=== PATIENT | female | born 1960 | race Caucasian/White ===

== ENCOUNTER 2016-03-02 08:00 | Inpatient (IN) | payer BC ==
--- NOTE | 2016-02-18 14:03 | HP ---
PREOPERATIVE HISTORY AND PHYSICAL: DATE OF PREOPERATIVE HISTORY AND PHYSICAL EXAMINATION: 02/16/16. DATE OF ADMISSION/SURGERY: 03/09/16. This patient is scheduled for AA admission by Dr. Godoy on 03/09/16. ATTENDING SURGEON: Dr. Dhruv Godoy (dictated by Nathan Park NP) CHIEF COMPLAINT: Obesity. HISTORY OF PRESENT ILLNESS: The patient is a 55-year-old female with a body mass index of 37 and comorbidities of obstructive sleep apnea, requiring CPAP and gastroesophageal reflux disease; she has a longstanding history of obesity and is seeking bariatric surgery as a more permanent solution to her obesity and comorbidities. She has tried and failed with sustained weight loss with attempts on conventional diets. She has completed 6 months of medically supervised weight loss and has completed all of the necessary preoperative diagnostic evaluations and testing and has been deemed an appropriate candidate by Dr. Godoy to proceed with laparoscopic sleeve gastrectomy. Dr. Godoy described the nature of the surgical procedure, the expected results of surgery , the relevant risks, benefits, and alternatives, and today I reviewed the typical hospitalization and expected postoperative care and recovery including compliance with the stages of postoperative diet, exercise, vitamin and mineral supplementation, and followup visits at [facility] and [facility]. The patient has had a chance to ask questions and stated that she understands the information and is satisfied with the answers given to her questions. She will sign surgical consent on the day of surgery. PAST MEDICAL HISTORY: Significant for: 1. Obstructive sleep apnea, requiring the use of CPAP. 2. Gastroesophageal reflux disease. 3. Small hiatal hernia as demonstrated on preoperative upper endoscopy. 3. Mildly elevated cholesterol. PAST SURGICAL HISTORY: 1. Appendectomy in 1980. 2. section in 1989. MEDICATIONS: 1. Citalopram 40 mg p.o. daily in the morning. 2. Lansoprazole 30 mg p.o. b.i.d. 3. Zolpidem 10 mg at bedtime. ALLERGIES: No known drug allergies. FAMILY HISTORY: Mother at age 83 with complications of sepsis and had valvular heart disease and COPD. Father at age 79, he was in a motor vehicle accident while visiting his in the hospital and 10 days before his with complications of multiple fractures and respiratory failure. He had a history of heart disease and pacemaker. The patient has one sister, alive at age 50, described as overweight. She has 2 half-brothers, one of the brothers from rectal cancer and the other brother with heart disease. No known anesthesia complications or bleeding tendencies or clotting disorders in the family. 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 She drinks alcohol socially and denies the use of other substances. She exercises by going horseback riding and she also has access to gyms on the [facility]. REVIEW OF SYSTEMS: She reports migraine headaches; she denies any cardiac conditions or complaints; she was diagnosed with obstructive sleep apnea and has been using CPAP; she underwent upper endoscopy by Dr. Lynch at [place] on 03/15 and was diagnosed with GERD and a small hiatal hernia, and increased lansoprazole from daily to b.i.d. to control her GERD symptoms. She denies any history of deep venous thrombosis or pulmonary embolism. She denies any previous anesthesia complications or bleeding tendencies and has never received a blood transfusion. She denies any bladder or kidney complaints. She has gone through phases of irritable bowel, but currently her bowel movements are formed and regular. She had a colonoscopy on 04/29/15, reportedly within normal limits. She has a history of plantar fasciitis of the right foot and bone spur of the left foot. She has never been diagnosed with diabetes and has not had abnormal thyroid testing. She has never had a gallbladder attack. She denies any circulatory problems or painful varicose veins. PHYSICAL EXAMINATION GENERAL SURVEY: The patient is a 55-year-old obese female, well-developed, in no acute distress. VITAL SIGNS: Height 64 inches, weight today 217 pounds, body mass index 37.2, blood pressure 144/90, pulse 62 and regular, respiratory rate 16, temperature 98.2 tympanic. SKIN: Warm, dry, and intact. HEENT: Benign. NECK: Supple. No cervical lymphadenopathy. No thyromegaly. No carotid bruits. BACK: No CVA tenderness. LUNGS: Breath sounds bilaterally clear and equal. HEART: Regular rate and rhythm. No murmurs or rubs appreciated. ABDOMEN: Active bowel sounds. Well-healed surgical scars. Soft and nondistended and nontender throughout. No obvious masses, organomegaly, or incisional or ventral hernias. No skin fold rashes. EXTREMITIES: Warm without edema or skin ulcerations. PELVIC: Deferred. RECTAL: Deferred. NEUROLOGIC: Alert and oriented x3, steady gait. IMPRESSION: 1. Morbid obesity. 2. Obstructive sleep apnea requiring CPAP. 3. GERD with small hiatal hernia. PLAN/RECOMMENDATIONS: AA admission to Dr. Godoy' service on 03/09/16 , for a laparoscopic sleeve gastrectomy. NATHAN PARK NP CC: [facility]; Tammy Hernandez NP * [id number]/CPS #: [id number] [facility]
[2016-03-09] MEDS ORDERED: Dexamethasone IV* 4 MG/ML 1 ML (4 MG) IV SLOW PU ONE (06:00)
[2016-03-09] MEDS ORDERED: Famotidine IV* 10 MG/ML 2 ML (20 mg) IV ONE (06:00)
[2016-03-09] MEDS ORDERED: Buffered Lidocaine 1% SYR 3ML* 3 ML/SYR SYRINGE INTRADERM ONE (06:00)
[2016-03-09] MEDS ORDERED: Scopolamine 1.5 mg* PATCH TRANSDERM ONE (06:00)
[2016-03-09] MEDS ORDERED: Bupivacaine 0.5% W/EPI SDV* 30 ML VIAL ONE (06:57)
[2016-03-09] MEDS ORDERED: Famotidine IV* 10 MG/ML 2 ML (20 mg) ONE (09:24)
[2016-03-09] MEDS ORDERED: Dexamethasone IV* 4 MG/ML 1 ML (4 MG) ONE (09:24)
[2016-03-09] MEDS ORDERED: Heparin VIAL(*) 5000 UNITS/ML VIAL (FIVE THOUSAND) ONE (09:24)
[2016-03-09] MEDS ORDERED: Scopolamine 1.5 mg* PATCH ONE (09:24)
[2016-03-09] MEDS ORDERED: ceFAZolin 2 GM PREMIX (*) 2 GM/50 ML BAG IVPB ONE (09:25)
[2016-03-09] MEDS ORDERED: Buffered Lidocaine 1% SYR 3ML* 3 ML/SYR SYRINGE ONE (09:25)
[2016-03-09] MEDS ORDERED: ceFAZolin 1 GM in Dextrose (*) 1 GM/50 ML BAG IVPB ONE (09:25)
[2016-03-09] MEDS ORDERED: Propofol* 10 MG/ML 20 ML BTL IV PUSH ONE (09:59)
[2016-03-09] MEDS ORDERED: Lidocaine 2% MPF* 2 ML VIAL ONE (09:59)
[2016-03-09] MEDS ORDERED: Rocuronium* 10 MG/ML VIAL ONE (09:59)
[2016-03-09] MEDS ORDERED: Midazolam* 1 MG/ML 5 ML VIAL (5 MG) ONE (09:59)
[2016-03-09] MEDS ORDERED: fentaNYL* 50 MCG/ML 2 ML VIAL (100 MCG VIAL) ONE ×4 (09:59→13:44)
[2016-03-09] MEDS ORDERED: Acetaminophen IV 1GM/100ML * 100 ML IVPB ONE (10:10)
[2016-03-09] MEDS ORDERED: PROCHLORPERAZINE INJ 5 MG/ML 2 ML VIAL IV PRN (10:10)
[2016-03-09] MEDS ORDERED: Morphine INJ* 2 MG/ML 1 ML CARPUJECT IV PRN (10:10)
[2016-03-09] MEDS ORDERED: Clindamycin 900 MG IVPREMIX(* 900 MG/50 ML SDV IV ONE (10:31)
[2016-03-09] MEDS ORDERED: Ketorolac INJ* 30 MG/ML 1 ML VIAL ONE (10:40)
[2016-03-09] MEDS ORDERED: Glycopyrrolate IV* 0.2 MG/ML 1 ML VIAL ONE (10:49)
[2016-03-09] MEDS ORDERED: Ondansetron INJ* 2 MG/ML VIAL ONE (11:26)
[2016-03-09] MEDS ORDERED: Acetaminophen IV 1GM/100ML * 100 ML ONE (11:58)
[2016-03-09] MEDS ORDERED: diPHENhydraMINE IV* 50 MG/ML 1 ml VIAL (BENADRYL) SLOW PUSH PRN (11:59)
[2016-03-09] MEDS ORDERED: Ondansetron INJ* 2 MG/ML VIAL IV PRN (11:59)
[2016-03-09] MEDS ORDERED: Acetaminophen ADULT LIQ* 650 MG/20.3 ML UDC PO PRN (11:59)
[2016-03-09] MEDS ORDERED: HYDROcodone/ACET. 7.5/325 LIQ* 15 ML UDC PO PRN (11:59)
--- NOTE | 2016-03-09 12:04 | SURGPN ---
Brief Operative Note - Surgery Procedures: PREOP/POSTOP: MORBID OBESITY/HIATAL HERNIA PROC: LAP SLEEVE GASTRECTOMY; REPAIR OF HIATAL HERNIA SURG: MECENAS ASSIST: DIANE PETERSONS: TWAN/ANTON EBL: MIN IVF: LR SPEC: PORTION OF STOMACH DRAIN: NONE COMPL: NONE COND: STABLE TO RR EXTUBATED.
[2016-03-09] MEDS: fentaNYL* 50 MCG/ML 2 ML VIAL (100 MCG VIAL) IV PRN ×4 (12:50→14:22)
[2016-03-09] MEDS ORDERED: Heparin VIAL(*) 5000 UNITS/ML VIAL (FIVE THOUSAND) SUBCUT SCH (14:00)
[2016-03-09] MEDS ORDERED: HYDROmorphone INJ* 1 MG/ML CARPUJECT SYRINGE ONE (15:14)
[2016-03-09] MEDS: HYDROmorphone INJ* 1 MG/ML CARPUJECT SYRINGE IV PRN ×3 (15:16→21:38)
[2016-03-09] MEDS ORDERED: Pantoprazole IV* 40 MG IV SCH (15:30)
[2016-03-09] MEDS: Heparin VIAL(*) 5000 UNITS/ML VIAL (FIVE THOUSAND) SUBCUT SCH (15:45)
[2016-03-09] MEDS: Ketorolac INJ* 30 MG/ML 1 ML VIAL IV PRN ×2 (15:46→22:10)
[2016-03-10] MEDS: HYDROmorphone INJ* 1 MG/ML CARPUJECT SYRINGE IV PRN ×2 (00:46→04:17)
[2016-03-10] MEDS: Heparin VIAL(*) 5000 UNITS/ML VIAL (FIVE THOUSAND) SUBCUT SCH ×2 (00:47→08:18)
--- NOTE | 2016-03-10 01:55 | OP ---
DATE OF OPERATION: 03/09/16 - ROOM #352 DATE OF : 64 SURGEON: Dhruv Godoy MD POLE SHAVER HELPER: Dr. Hurst. ANESTHESIOLOGIST: Dr. Penaloza. ANESTHESIA: General endotracheal. PRE-OP DIAGNOSES: 1. Morbid obesity. 2. Hiatal hernia. POST-OP DIAGNOSIS: 1. Morbid obesity. 2. Hiatal hernia. OPERATIVE PROCEDURE: Laparoscopic sleeve gastrectomy and laparoscopic hiatal hernia repair. ESTIMATED BLOOD LOSS: Minimal. IV FLUIDS: Crystalloids. SPECIMEN: Portion of stomach. DRAINS: None. COMPLICATIONS: None. COUNTS: The instrument, needles, and sponge counts were correct. DESCRIPTION OF PROCEDURE: The patient was brought to the operating room and placed on the table supine. Sequential compression devices were placed on both lower extremities. General anesthesia was administered. She was positioned and padded appropriately. She received appropriate antibiotics. She was prepped and draped in the usual sterile fashion and time-out was performed. Local anesthetic was infiltrated into the skin and soft tissue prior to making each incision. Entry to the abdomen was through a left upper quadrant incision accommodating a 5-mm optical trocar. After accessing the peritoneal cavity, carbon dioxide was insufflated to a pressure of 15 mmHg. Under direct visualization, a 12- mm bladeless trocar was placed in the supraumbilical midline. A 15-mm bladeless trocar was placed in the right upper quadrant and a 5-mm trocar was placed in the left upper quadrant laterally. The Nida liver retractor was placed percutaneously and the subxiphoid position used to elevate the left lobe of the liver. The patient was noted to have a small sliding type hiatal hernia. The mobilization of the stomach was performed along the greater curvature using the LigaSure device starting 6 cm proximal to the pyloric valve. The greater curvature was entirely skeletonized in this fashion. As the left dyan of the diaphragm was approached , a hiatal hernia sac was reduced and dissected free from the left dyan of the diaphragm. There was a posterior gastric fat pad that was mobilized, but not excised. The esophagogastric ligament was incised across the anterior portion of the stomach as well. The dissection then proceeded on the right side of the stomach entering the pars flaccida bluntly and then dividing the attachments to the right dyan of the diaphragm using a combination of blunt dissection and LigaSure. Subsequently, a sleeve gastrectomy was performed over a 40-Belarusian bougie with a black reinforced cartridge on the antrum and purple reinforced cartridges on the remaining portions of the stomach. The bougie was withdrawn and the retrogastric dissection completed using combination of blunt dissection and LigaSure. There was an adequate 4 cm of esophagus noted to be within the abdominal cavity. The cruroplasty was performed with 0 Ti-Cron suture with a single suture to narrow the defect to a point where it was about 2 cm diameter. The staple lines were then inspected and noted to be intact and hemostatic. The specimen then was retrieved through the right upper quadrant port site and the ports were subsequently removed under direct visualization and carbon dioxide released as well as the liver retractor. The right upper quadrant 15-mm port site was closed with 0 Polysorb in an interrupted fashion. Skin incisions were all closed with gamaliel. The dressings were applied. The patient tolerated the procedure well. She was extubated and transferred to recovery room in a stable condition. CC: Tammy Hernandez NP * [id number]/LORE #: [id number] FRANKI
[2016-03-10] MEDS: Ketorolac INJ* 30 MG/ML 1 ML VIAL IV PRN (05:14)
[2016-03-10] MEDS ORDERED: Citalopram TAB* 40 MG PO SCH (09:00)
--- NOTE | 2016-03-10 09:36 | PN ---
Progress Note - Progress Note SOAP: DISCHARGE NOTE Subjective: Doing well. Tolerating po clears without any N/V/GERD. Pain controllled with oral meds. Objective: Vital Signs Temp 97.8 F 03/10/16 07:51 Pulse 64 03/10/16 07:51 Resp 16 03/10/16 08:13 BP 123/63 03/10/16 07:51 Pulse Ox 93 03/10/16 07:51 Intake & Output 03/09/16 03/10/16 03/10/16 18:59 06:59 18:59 Intake Total 2800 1012 Output Total 1300 Balance 2800 -288 Weight 210 lb 6.4 oz Intake: IV Fluids 2800 982 LR 2500 982 NS 100ML, Cefazolin 1G 100 NS 100ML, Cefazolin 2G 100 NS 100ML, Clindamycin 100 600MG Oral 30 Output: Urine 1300 Other: Estimated Void Medium # Bowel Movements 1 # Voids 3 NAD Abd: ND, soft, dressings intact. Assessment: POD#1 s/p LSG/HH repair. Stable for discharge. Plan: Home today with po meds. RTO for staple removal 7-10 days.
[2016-03-10 11:59] VITALS: BP 111/66
[2016-03-10] MEDS ORDERED: D5W 1/2 NS KCl 20 Meq 1000 ML* 1,000 ML IV SCH (12:00)
[2016-03-12] MEDS ORDERED: Scopolamine PATCH Remove* 1 NOTE MISC PATCH OFF ONE (06:00)
== END 2016-03-10 13:05 | disposition home or self-care (01) | DRG 403 ==
LOC: AA 03-09 08:30 → SSU 03-09 15:03
PROVIDERS: ADMIT Surgery; ATTEND Surgery
PROC: 0BQS4ZZ (ICD-10-PCS; 2016-03-09)
PROC: 0BQR4ZZ (ICD-10-PCS; 2016-03-09)
PROC: 0DB64Z3 Excision of Stomach, Percutaneous Endoscopic Approach, Vertical (ICD-10-PCS; principal; 2016-03-09 09:45)
DX: E66.01 Morbid (severe) obesity due to excess calories (principal); G47.33 Obstructive sleep apnea (adult) (pediatric); K21.9 Gastro-esophageal reflux disease without esophagitis; E78.00 Pure hypercholesterolemia, unspecified; Z82.5 Family history of asthma and other chronic lower respiratory diseases; Z82.49 Family history of ischemic heart disease and other diseases of the circulatory system; Z80.0 Family history of malignant neoplasm of digestive organs; K44.9 Diaphragmatic hernia without obstruction or gangrene; Z68.36 Body mass index [BMI] 36.0-36.9, adult
CPT/HCPCS: 88307; 94760; A9270-GY; C1776; J0690; J1100; J1170; J1644; J1885; J2250; J2405; J2704; J3010

== ENCOUNTER 2017-06-08 12:39 | Day surgery (SDC) | payer BC ==
[~2017-06-08 12:39] MED LIST: Buffered Lidocaine 0.9% SYRIN* 5 ML/SYR SYRINGE INTRADERM ONE
[2017-06-08] MEDS ORDERED: Buffered Lidocaine 0.9% SYRIN* 5 ML/SYR SYRINGE ONE (12:45)
[2017-06-08] MEDS ORDERED: ceFAZolin 2 GM PREMIX (*) 2 GM/50 ML BAG IVPB ONE (12:45)
[2017-06-08] MEDS ORDERED: Midazolam* 1 MG/ML 2 ML VIAL (2 MG) ONE (13:51)
[2017-06-08] MEDS ORDERED: fentaNYL* 50 MCG/ML 2 ML VIAL (100 MCG VIAL) ONE (13:51)
[2017-06-08] MEDS ORDERED: Lidocaine 2% PF * 5 ML VIAL ONE ×2 (13:51→14:07)
[2017-06-08] MEDS ORDERED: Ondansetron INJ* 2 MG/ML VIAL ONE (14:07)
[2017-06-08] MEDS ORDERED: Ketorolac INJ* 30 MG/ML 1 ML VIAL ONE (14:07)
[2017-06-08] MEDS ORDERED: Dexamethasone IV* 4 MG/ML 1 ML (4 MG) ONE (14:07)
[2017-06-08] MEDS ORDERED: Propofol* 10 MG/ML 20 ML BTL IV PUSH ONE (14:07)
[2017-06-08] MEDS ORDERED: Mivacurium Chloride* 20 MG/10 ML VIAL IV ONE (14:07)
[2017-06-08] MEDS ORDERED: Glycopyrrolate IV* 0.2 MG/ML 1 ML VIAL ONE (14:22)
[2017-06-08] MEDS ORDERED: EPHEDrine (Pressors)* 50 MG/ML VIAL ONE (14:23)
[2017-06-08] MEDS ORDERED: Naloxone* 0.4 MG/ML 1 ML VIAL IV PRN (14:31)
[2017-06-08] MEDS ORDERED: fentaNYL* 50 MCG/ML 2 ML VIAL (100 MCG VIAL) IV PRN (14:31)
[2017-06-08] MEDS ORDERED: Acetaminophen TAB* 325 MG PO PRN (14:31)
[2017-06-08] MEDS ORDERED: DiMENhydriNATE IV* 50 MG/ML VIAL IV PUSH PRN (14:31)
[2017-06-08] MEDS ORDERED: HYDROcodone/ACETAMIN 5-325 MG* 1 TAB PO PRN (14:31)
[2017-06-08] MEDS ORDERED: PROCHLORPERAZINE INJ 5 MG/ML 2 ML VIAL IV PRN (14:31)
--- NOTE | 2017-06-08 14:58 | OP ---
Operative Report - Blank - Operative Report Date of Operation: 06/08/17 Note: Pre-op Dx: Symptomatic cholelithiasis Post-op Dx: Symptomatic cholelithiasis Procedure: cholecystectomy Anesthesia: GET Surgeon: Dr. Godoy Assists: KARLIE Kidd; DIANE Gonzalez Fluids: 1500 LR EBL: 25 cc Specimen: gallbladder Drains: none Findings: dictated
[2017-06-08] MEDS ORDERED: HYDROcodone/ACETAMIN 5-325 MG* 1 TAB ONE (15:18)
[2017-06-08 16:11] VITALS: BP 120/74
--- NOTE | 2017-06-09 05:56 | OP ---
CC: Marshall Boles MD, [facility]* DATE OF OPERATION: 06/08/17 - [facility] DATE OF : 64 SURGEON: Dhruv Godoy MD RUBBISH COLLECTION SUPERVISOR: KARLIE Marin ANESTHESIOLOGIST: Jose Mercedes MD ANESTHESIA: General endotracheal. PRE-OP DIAGNOSIS: Symptomatic cholelithiasis. POST-OP DIAGNOSIS: Symptomatic cholelithiasis. OPERATIVE PROCEDURE: Laparoscopic cholecystectomy. ESTIMATED BLOOD LOSS: Minimal. IV FLUIDS: Crystalloid. SPECIMENS: Gallbladder. DRAINS: None. COMPLICATIONS: None. COUNTS: Instrument, needle, and sponge counts were correct. DESCRIPTION OF PROCEDURE: The patient was brought to the operating room and placed on the table supine. Sequential compression devices were placed on both lower extremities. General anesthesia was administered. She was prepped and draped in the usual sterile fashion. She received appropriate intravenous antibiotics. Time- out was performed. Local anesthetic was infiltrated into the skin and soft tissue prior to each incision being made. Entry into the abdomen was through a transumbilical incision using an open technique to accommodate a 12-mm trocar. After I placing the trocar, carbon dioxide was insufflated to pressure of 15 mmHg. Under direct visualization, 5-mm trocars was placed in the subxiphoid position and two in the right upper quadrant. Gallbladder was identified. There were numerous adhesions to the gallbladder of omentum; however, there is no acute inflammation. Adhesions were taken down using a combination of sharp and blunt dissection with cautery. The gallbladder fundus was retracted cephalad and the peritoneum investing the gallbladder near the infundibulum was incised and peeled away to reveal the course of the cystic duct, which was bluntly dissected out. Cystic artery was also identified, bluntly dissected out until critical view was obtained. Then the cystic duct and the cystic artery were reached, doubly clipped and divided. The gallbladder was freed from its attachments to the liver bed using hook cautery to stay in an avascular plane. At one point, the gallbladder was entered and cholecystotomy site was controlled with endoscopic clip placement. The gallbladder was freed from remaining attachments and then retrieved through the umbilical site with the endoscopic retrieval bag. Hemostasis was assured. Clips were noted to be intact and hemostatic. The right upper quadrant was copiously lavaged to retrieve any loose stones and clear any bile. At the conclusion, the ports were removed under direct visualization. Carbon dioxide was released. The umbilical port was closed with 0 Vicryl in [id number] fashion to approximate the fascia. Skin was closed with 4-0 Monocryl in subcuticular fashion. Steri-Strips were applied. The patient tolerated this procedure well, was extubated and transferred to recovery room in stable condition. [id number]/[facility] #: [id number] MTDD
== END 2017-06-08 16:13 | disposition home or self-care (01) ==
LOC: OR 12:39
PROVIDERS: ATTEND Surgery
DX: K80.10 Calculus of gallbladder with chronic cholecystitis without obstruction (principal); Z98.84 Bariatric surgery status; K21.9 Gastro-esophageal reflux disease without esophagitis; K44.9 Diaphragmatic hernia without obstruction or gangrene; E78.00 Pure hypercholesterolemia, unspecified; E66.9 Obesity, unspecified
CPT/HCPCS: 88304; C1776; J0690; J1100; J1885; J2250; J2405; J2704; J3010

== ENCOUNTER 2019-04-25 09:37 | Emergency (ER) | payer BC, OTHER ==
--- NOTE | 2019-04-25 11:43 | UC ---
Throat Pain/Nasal Cali HPI - HPI Summary HPI Summary: 58-year-old female presenting with nasal congestion 4 days. Patient states that "feels like a cold" but her congestion "has not moved." Further states that there is "no drainage and nothing comes out when she blows her nose." Denies cough and sore throat. States "ears feel itchy at time." Denies fever and chills. Notes "sinus headache." States she has been unable to use her CPAP machine at night because she is so congested. States she is taking Sudafed and ibuprofen with minimal relief. - History of Current Complaint Chief Complaint: UCGeneralIllness Stated Complaint: SINUS ISSUES Hx Obtained From: Patient Pain Intensity: 1 Pain Scale Used: 0-10 Numeric - Allergies/Home Medications Allergies/Adverse Reactions: Allergies Allergy/AdvReac Type Severity Reaction Status Date / Time No Known Allergies Allergy Verified 04/25/19 10:32 Home Medications: Home Medications Zolpidem TAB* [Ambien*] 10 mg PO BEDTIME 02/16/16 [History Confirmed 04/25/19] Cholecalciferol TAB* [Vitamin D TAB*] 2,000 units PO QAM 06/07/17 [History Confirmed 04/25/19] Cyanocobalamin TAB* [Vitamin B12 TAB*] 1,000 mcg PO QAM 06/07/17 [History Confirmed 04/25/19] Lansoprazole [Prevacid] 30 mg PO QAM 06/07/17 [History Confirmed 04/25/19] Multivit-Min/Iron Fum/Folic AC [Multi Vitamin and Mineral] 1 tab PO QAM [History Confirmed 04/25/19] Citalopram TAB* [CeleXA TAB*] 40 mg PO DAILY 04/25/19 [History Confirmed ] PMH/Surg Hx/FS Hx/Imm Hx - Surgical History Surgical History: Yes Surgery Procedure, Year, and Place: APPENDECTOMY. . GASTRIC SLEEVE WITH HIATAL HERNIA REPAIR-02/2016. lianne 2017 - Family History Known Family History: Positive: Non-Contributory - Social History Alcohol Use: Occasionally Alcohol Amount: 1 GLASS OF WINE A FEW TIMES A WEEK Substance Use Type: None Smoking Status (MU): Never Smoked Tobacco Amount Used/How Often: RECREATIONAL IN COLLEGE-30+ YEARS AGO - Immunization History Most Recent Influenza Vaccination: 2016 Most Recent Tetanus Shot: 1.5 yrs ago Most Recent Pneumonia Vaccination: HAS NOT HAD Review of Systems All Other Systems Reviewed And Are Negative: Yes Constitutional: Positive: Negative ENT: Positive: Sinus Congestion, Other - "itchy ears". Negative: Sore Throat Respiratory: Positive: Negative Cardiovascular: Positive: Negative Gastrointestinal: Positive: Negative Musculoskeletal: Positive: Negative Neurological/Mental Status: Positive: Negative Physical Exam - Summary Physical Exam Summary: Vital Signs Reviewed: Yes A+Ox3, no distress Eyes: Conjunctiva Clear ENT: Hearing grossly normal, nasal turbinates moist and nonedematous, TM x 2 clear, moist, uvula midline, no exudate, no erythema Neck: Positive: Supple Respiratory: Positive: No respiratory distress, No accessory muscle use + CTA throughout no w/r Cardiovascular: RRR nl s1, s2 no m/r Musculoskeletal Exam: GILBERT x 4 without difficulty Neurological: Positive: Alert Psychological: Positive: age appropriate behavior Skin: Positive: no rash, no ecchymosis Vital Signs: Initial Vital Signs Temp 98.4 F 04/25/19 10:33 Pulse 70 04/25/19 10:33 Resp 16 04/25/19 10:33 BP 118/80 04/25/19 10:33 Pulse Ox 99 04/25/19 10:33 Throat Pain/Nasal Course/Dx - Course Course Of Treatment: Discussed with patient the likely viral etiology of upper respiratory symptoms. Patient instructed to continue to take OTC decongestants for relief of symptoms. May take OTC analgesics as directed for pain relief. Directed follow up with pcp if symptoms worsen or do not resolve within 7 days. Patient voiced understanding and agreed to treatment plan. - Differential Dx/Diagnosis Differential Diagnosis/HQI/PQRI: Sinusitis, URI Provider Diagnosis: URI (upper respiratory infection) Discharge ED - Sign-Out/Discharge Documenting (check all that apply): Patient Departure All imaging exams completed and their final reports reviewed: No Studies - Discharge Plan Condition: Stable Disposition: HOME Patient Education Materials: Upper Respiratory Infection (ED) Referrals: Marshall Boles MD [Primary Care Provider] - If Needed Additional Instructions: Your symptoms are likely caused by a virus and should resolve without treatment. You may continue to take over the counter decongestant and ibuprofen for symptom relief. You may also add Flonase or nasal saline spray. A humidifier at night may also help alleviate symptoms. Get plenty of rest and increase your fluid intake. Follow up with your primary care doctor if your symptoms worsen or do not resolve within 7-10 days. - Billing Disposition and Condition Condition: STABLE Disposition: Home
[2019-04-25 12:15] VITALS: BP 135/78
== END 2019-04-25 12:15 | disposition home or self-care (01) ==
LOC: UCEAST 09:37
DX: J06.9 Acute upper respiratory infection, unspecified (principal)
CPT/HCPCS: 99212; G0463